=== PATIENT | female | born 1945 | race Caucasian/White ===

== ENCOUNTER 2020-05-22 08:43 | Emergency (ER) | payer OTHER ==
[~2020-05-22] VITALS: Ht 152.4 cm; Wt 64.4 kg
[2020-05-22 08:53] VITALS: BP 160/80; Ht 152.4 cm; Wt 64.4 kg
== END 2020-05-22 10:55 | disposition home or self-care (01) ==
LOC: ED 08:43
DX: M54.41 Lumbago with sciatica, right side (principal); M16.11 Unilateral primary osteoarthritis, right hip; I10 Essential (primary) hypertension; E11.9 Type 2 diabetes mellitus without complications; M19.90 Unspecified osteoarthritis, unspecified site